=== PATIENT | male | born 1960 | race Caucasian/White ===

== ENCOUNTER → 2023-12-09 | Outpatient (REF) | payer MEDICARE ==
[~2023-12-09] MED LIST: COPAXONE20 MG/KIT INJ; PANTOPRAZOLE SO40 MG PO
== END ==
LOC: MRI 08:27
PROVIDERS: ATTEND Family Medicine
DX: M75.101 Unspecified rotator cuff tear or rupture of right shoulder, not specified as traumatic (principal)